=== PATIENT | male | born 1950 | race Caucasian/White ===

== ENCOUNTER 2024-10-17 14:39 | Emergency (ER) | payer MEDICARE, OTHER, SELFPAY ==
[2024-10-17 14:42] VITALS: BP 171/93
--- NOTE | 2024-10-17 16:43 | ED.GENMED ---
History of Present Illness
General
Chief Complaint: Musculo-Skeletal Complaint
Source: patient
Exam Limitations: none
Time Seen by Provider: 10/17/24 16:16
Nursing documentation reviewed up to this point in time: agreed with
History of Present Illness
History of Present Illness:
73-year-old male past medical history of hypertension diabetes presenting to the emergency department with concerns of bruising to the top of his foot and some pain mainly to the 2nd and 3rd toes after his foot got caught under him after an awkward
fall a few days ago. Denies additional injuries otherwise.
Review of Systems
Review of Systems
Allergies reviewed?: Yes
All Other Systems: ROS reviewed and negative except as documented in HPI and ROS
Phy Exam
Physical Exam
Physical Exam:
GENERAL: Alert , in no apparent distress
EYE: pupils equal and reactive
NECK: Supple, no significant adenopathy.
ENT: o/p clr, mmm.
CARDIAC: Regular rate and rhythm .
LUNGS: Clear breath sounds bilaterally, no acute respiratory distress, no wheezes/rales/rhonchi
ABDOMEN: Soft, without focal tenderness, no r/g, no cvat
NEUROLOGICAL: Alert and oriented, no focal neuro deficits
SKIN: Warm and dry, skin intact.
MUSCULOSKELETAL: Bruising to the 2nd and 3rd toes, minimal tenderness to the base of the toes otherwise no tenderness throughout the remainder of the foot normal distal pulses and cap refill no edema, well perfused.
PSYCH: Normal and appropriate interaction.
Course
Orders/Labs/Results
Orders:
Orders
10/17/24 14:46
Foot, Left 3 View [CR Foot - Left Min 3 Views] Urgent
Comment:
Reason For Exam: fall 10/14/24
10/17/24 16:43
Ortho Boot Left- Treatment ONCE
Short or tall?: Short
Vital Signs
Initial and Last Documented VS:
Initial Vital Signs
Temp Pulse Resp BP Pulse Ox
97.9 F 94 16 171/93 98
10/17/24 14:42 10/17/24 14:42 10/17/24 14:42 10/17/24 14:42 10/17/24 14:42
Last Documented Vital Signs
Temp Pulse Resp BP Pulse Ox
97.9 F 94 16 171/93 98
10/17/24 14:42 10/17/24 14:42 10/17/24 14:42 10/17/24 14:42 10/17/24 14:42
MDM/Problems Addressed
MDM/Problems Addressed:
73-year-old male presenting to the emergency department today with concerns of injury to his foot from a few days ago. Ongoing pain and bruising to the area. X-ray showing small avulsion fracture to the proximal phalanx of the 2nd and 3rd toe.
Patient placed in a hard soled shoe and otherwise will follow-up closely with podiatry. Return precautions given.
*Critical Care Note
Total Time (30-74mins, 75-104mins- exclusive of procedures): Not Applicable
ED Attending Note
-
Portions of this chart may have been created with voice recognition software.� Occasional wrong word or��sound alike� substitutions may have occurred due to the inherent limitations of voice recognition software.
Discharge Plan
Departure
Patient Disposition: Home (Routine Discharge)
Date of Disposition: 10/17/24
Time of Disposition: 16:45
Patient with high blood pressure during this ER visit?: No
Condition: Good
Covid-19: Not Applicable
Discharge Problem:
Fracture of toe
Instructions: Toe Fracture ED
Activity Restrictions/Additional Instructions:
You came to the emergency department today with concerns of a foot injury. You are found to have a fracture second third middle phalanges. Please follow closely with podiatry and use the hard soled shoe. Return for any worsening, new or
concerning symptoms.
Interventions
Interventions:
*Risk Screen - Suicide Last Done: 10/17/24 14:42
*General Assessment Last Done: 10/17/24 16:19
*Neglect/Abuse Screening Last Done: 10/17/24 14:42
*ED COVID-19 Vaccine History Last Done: 10/17/24 16:19
ED-Musculoskeletal Assessment Last Done: 10/17/24 16:20
Discharge Date and Time
Print Language: [id number]
== END 2024-10-17 17:26 | disposition home or self-care (01) ==
LOC: EMR 14:39
PROVIDERS: EMERGENCY PHYSICIAN Student in an Organized Health Care Education/Training Program; FAMILY PHYSICIAN Family Medicine
DX: S92.512A Displaced fracture of proximal phalanx of left lesser toe(s), initial encounter for closed fracture (principal); S90.32XA Contusion of left foot, initial encounter; S90.122A Contusion of left lesser toe(s) without damage to nail, initial encounter; W19.XXXA Unspecified fall, initial encounter; E11.9 Type 2 diabetes mellitus without complications; I10 Essential (primary) hypertension
CPT/HCPCS: 99283; 73630

== ENCOUNTER → 2024-11-17 08:16 | Outpatient (REF) | payer MEDICARE, OTHER, SELFPAY | LOC: HWRAD 08:16 | PROVIDERS: ATTENDING PHYSICIAN Student in an Organized Health Care Education/Training Program | DX: M54.10 Radiculopathy, site unspecified (principal) | CPT/HCPCS: 72100; 73502 ==